=== PATIENT | female | born 1945 | race Hispanic/Latino ===

== ENCOUNTER → 2020-05-02 | Outpatient (CLI) | payer OTHER ==
[~2020-05-02] MED LIST: IOHEXOL 350 MG/ML 100ML INFUS..BTL IV ONE
== END | disposition home or self-care (01) ==
LOC: OIH 09:16 → DAH 09:38
PROVIDERS: ATTEND Internal Medicine
DX: K57.30 Diverticulosis of large intestine without perforation or abscess without bleeding (principal); I70.8 Atherosclerosis of other arteries; R31.29 Other microscopic hematuria
CPT/HCPCS: 74178; Q9967

== ENCOUNTER → 2021-05-21 | Outpatient (CLI) | payer OTHER | END | disposition home or self-care (01) | LOC: RAH 07:35 | PROVIDERS: ATTEND Internal Medicine | DX: E27.8 Other specified disorders of adrenal gland (principal); K57.90 Diverticulosis of intestine, part unspecified, without perforation or abscess without bleeding; K76.0 Fatty (change of) liver, not elsewhere classified; Z90.49 Acquired absence of other specified parts of digestive tract | CPT/HCPCS: 74170; Q9967 ==

== ENCOUNTER → 2021-07-04 | Outpatient (CLI) | payer OTHER ==
[~2021-07-04] MED LIST changes: +GADOTERATE MEGLUMINE 10 MMOL/20 ML VIAL IV ONE; -IOHEXOL 350 MG/ML 100ML INFUS..BTL IV ONE
== END | disposition home or self-care (01) ==
LOC: RAH 07:20
PROVIDERS: ATTEND Internal Medicine
DX: E27.8 Other specified disorders of adrenal gland (principal)
CPT/HCPCS: 74183; A9575

== ENCOUNTER → 2022-01-27 | Outpatient (CLI) | payer OTHER ==
[~2022-01-27] MED LIST changes: -GADOTERATE MEGLUMINE 10 MMOL/20 ML VIAL IV ONE; +IOHEXOL-350 75 ML VIAL IV ONE
== END | disposition home or self-care (01) ==
LOC: RAH 09:47
PROVIDERS: ATTEND Internal Medicine
DX: K57.90 Diverticulosis of intestine, part unspecified, without perforation or abscess without bleeding (principal); M47.815 Spondylosis without myelopathy or radiculopathy, thoracolumbar region; N32.89 Other specified disorders of bladder; I70.8 Atherosclerosis of other arteries; Z87.19 Personal history of other diseases of the digestive system; Z90.49 Acquired absence of other specified parts of digestive tract
CPT/HCPCS: 74178; Q9967

== ENCOUNTER 2025-11-09 07:09 | Emergency (ER) | payer OTHER ==
[~2025-11-09] VITALS: Ht 144.8 cm; Wt 72.6 kg
--- NOTE | 2025-11-09 07:21 | NUR ---
PATIENT IN ROOM
--- NOTE | 2025-11-09 07:54 | ERN ---
ED Note History of Present Illness Stated Complaint: NOSEBLEED Chief Complaint: Nosebleed Time Seen by MD: 07:15 Dictation: 80-year-old female presenting to the emergency department with nosebleed from right nostril over the past few minutes, patient is on baby aspirin no trauma has had similar episodes in the past. Allergies: Coded Allergies: No Known Allergies (Unverified Allergy, Unknown, 04/27/23) Home Meds Active Scripts Meclizine HCl (Meclizine HCl) 12.5 Mg Tablet, 1 TAB PO TID for dizziness for 10 Days, #30 TAB 0 Refills Prov:BRADY MITCHELL Molly 08/05/25 Reported Medications Mv-Mn/Folic Acid/Calcium/Vit K (Women's 50 Plus Daily Formula) 400 Mcg-500 Mg Calcium-20 Mcg Tablet, 1 EACH PO DAILY, TAB 08/05/25 Docusate Sodium (Docusate Sodium) 100 Mg Capsule, 200 MG PO DAILY, CAP 08/05/25 [place]-3/Dha/Epa/Fish Oil (Fish Oil 1,000 mg Softgel) 1,000 Mg (120 Mg-180 Mg) Capsule, 1000 MG PO DAILY, CAP 08/05/25 Solifenacin Succinate (Vesicare) 5 Mg Tablet, 5 MG PO DAILY, TAB 08/05/25 Semaglutide (Ozempic) 2 Mg/0.75 Ml (8 Mg/3 Ml) Pen.injctr, 2 MG SQ QWEEK 08/05/25 Empagliflozin (Jardiance) 10 Mg Tablet, 10 MG PO DAILY, TAB 08/05/25 Losartan Potassium (Losartan Potassium) 25 Mg Tablet, 25 MG PO DAILY, TAB 08/05/25 Simvastatin (ZOCOR) 40 Mg Tablet, 40 MG PO HS, TAB 04/27/23 Aspirin (ASPIRIN 81 MG ECTAB) 81 Mg Ectab, 81 MG PO QODAY, TAB.EC 04/27/23 Past Medical History Past Medical History: Diabetes-Type II, High Cholesterol, Hypertension Surgical History: Cholecystectomy Review of System Dictation Constitutional: Negative for fever,chills, and weight loss Eyes: Negative for injury, pain,redness, and discharge ENT: Per HPI Cardiovascular: Negative for chest pain, palpitations, and edema Respiratory: Negative for shortness of breath, cough, and wheezing, Abdomen/GI: Negative for abdominal pain, nausea, vomiting, diarrhea, and constipation Back: Negative for injury and pain : Negative for injury, bleeding and discharge MS/Extremity: Negative for injury and deformity Skin: Negative for rash, and discoloration Neuro: Negative for headache, weakness, numbness, tingling, and seizure Psych: Negative for suicide ideation, homicidal ideation, and hallucinations Initial Vital Sign VS Vital Signs Date Time Temp Pulse Resp B/P (MAP) Pulse Ox O2 Delivery O2 Flow Rate FiO2 11/09/25 07:10 98.2 77 20 155/79 99 Room Air 11/09/25 07:21 0 21 Physical Exam Dictation General: awake, alert, NAD Head/Face: Normocephalic, atraumatic Eyes: PERRL, EOMI, vision at baseline ENT: oral cavity clear, TMs clear, no active bleeding Neck: Trachea midline, supple, no nuchal rigidity Cardiovascular: RRR, normal S1/S2, No MRGs, no JVD Respiratory: CTAB, no respiratory distress, No rales or wheezes Abdomen: Soft, non-tender, non-distended, normal bowel sounds, no guarding or rebound. Skin: Warm, dry, normal turgor, no rash MS/Extremity: Pulses equal, no cyanosis, neurovascular intact, FROM Neuro: COAx4, GCS 15, strength 5/5, CN 2-12 intact, normal cerebellar exam, normal gait, Psych: Normal behavior, mood, and affect normal ED Course ED Course Orders Procedure Category Date Status Time Hydrocodone/Apap PHA 11/09/25 Complete Tab ([place] 10) 09:06 Current Medications Medications (Trade) Dose Ordered Sig/Jeremie Route PRN Reason Start Time Stop Time Status Last Admin Dose Admin Acetaminophen/ Hydrocodone Bitart ([place] 10) 1 tab ONCE STAT PO 11/09/25 09:06 11/09/25 09:09 DC 11/09/25 09:12 Vital Signs Date Time Temp Pulse Resp B/P (MAP) Pulse Ox O2 Delivery O2 Flow Rate FiO2 11/09/25 09:08 98.2 71 20 167/65 98 Room Air* 0 21 11/09/25 07:21 98.2 77 20 155/79 99 Room Air* 0 21 11/09/25 07:10 98.2 77 20 155/79 99 Room Air Medical Decision Making MDM MDM: Differential diagnosis: Rationale: Tests considered and ordered secondary to shared decision making include: Previous outside records reviewed: Old ER visits. Risk of complication and/or morbidity or mortality of patient management: None Medications-Per medication reconciliation Need for hospitalization: Patient does not meet criteria for hospitalization. Need for emergency major/minor surgery: No There are no social concerns with this patient. Prescription drug management Prescriptions will include symptomatic care Patient's prior external medical records from other ER visits were reviewed by me as indicated. Prior testing and results from previous visits were reviewed. Prior tests were taken into account with medical decision making and resource utilization, independent historian/historians were used to obtain complete medical history. I independently interpreted the test that were performed, results were reviewed by me and considered findings on radiology if ordered. Medical management and examination interpretation discussions were had by me with other qualified healthcare professionals as indicated for the patient's care. 80-year-old with anterior nosebleed resolved, stable exam is stable for discharge. DX & DISP Disposition: Discharge Departure Impression: Primary Impression: Anterior epistaxis Condition: Stable Scripts Prednisone (Prednisone) 20 Mg Tablet 1 TAB PO DAILY for 5 Days, #5 TAB 0 Refills Prov: ANA SHANE MD 11/09/25 Referrals: JITENDRA CORRIGAN MD (PCP) ANA SHANE MD Nov 09, 2025 07:54
--- NOTE | 2025-11-09 09:10 | NUR ---
NOSE CLIP REMOVED. PT DID NOT BLEED.
[2025-11-09 10:01] VITALS: BP 158/56; PULSE 65; RESP 12; TEMP 98.2; O2SAT 98
== END 2025-11-09 10:01 | disposition home or self-care (01) ==
LOC: EDH 07:09
DX: R04.0 Epistaxis (principal); E11.9 Type 2 diabetes mellitus without complications; E78.00 Pure hypercholesterolemia, unspecified; I10 Essential (primary) hypertension; Z79.84 Long term (current) use of oral hypoglycemic drugs; Z79.85 Long-term (current) use of injectable non-insulin antidiabetic drugs; Z79.899 Other long term (current) drug therapy; Z90.49 Acquired absence of other specified parts of digestive tract
CPT/HCPCS: 99283